=== PATIENT | female | born 1950 | race Hispanic/Latino ===

== ENCOUNTER 2017-04-29 20:58 | Emergency (ER) | payer MEDICAID ==
[2017-04-29] MEDS ORDERED: ACETAMINOPHEN-CODEINE 300/30MG TAB ONE (21:34)
== END 2017-04-29 23:02 | disposition home or self-care (01) ==
LOC: EDH 20:58
DX: S83.8X1A Sprain of other specified parts of right knee, initial encounter (principal); E11.9 Type 2 diabetes mellitus without complications; E78.5 Hyperlipidemia, unspecified; I10 Essential (primary) hypertension; M19.90 Unspecified osteoarthritis, unspecified site; J45.909 Unspecified asthma, uncomplicated; Z98.890 Other specified postprocedural states; X58.XXXA Exposure to other specified factors, initial encounter; Y93.89 Activity, other specified; Y92.098 Other place in other non-institutional residence as the place of occurrence of the external cause; Y99.8 Other external cause status
CPT/HCPCS: 73562

== ENCOUNTER 2018-10-17 22:58 | Emergency (ER) | payer MEDICARE ==
[2018-10-17 23:59] LABS: BASOPHILS % (AUTO) 0.4 % (0.0-5.0); EOSINOPHILS % (AUTO) 1.3 % (0.0-8.0); HEMATOCRIT 35.6 % (36-48); LYMPHOCYTES % (AUTO) 18.9 % (21.0-51.0); MEAN CORPUSCULAR HGB CONC 33.3 g/dL (32.0-36.0); MEAN CORPUSCULAR VOLUME 87.1 fL (79-99); MONOCYTES % (AUTO) 7.2 % (3.0-13.0); NEUTROPHILS % (AUTO) 72.2 % (40.0-77.0); NUCLEATED RED BLOOD CELLS 0.1 % (0.0-0.19); PLATELET COUNT (AUTO) 200 K/uL (130-400); RED BLOOD CELL COUNT(AUTO) 4.09 MIL/uL (4.00-5.50); RED CELL DISTRIBUTION WIDTH 12.8 % (11.0-15.5)
[2018-10-18 00:06] LABS: CARBON DIOXIDE 30 mmol/L (21-32); CHLORIDE 101 mmol/L (101-111); CREATININE 0.8 mg/dL (0.5-1.5); GLOMERULAR FILTR. RATE CALC 77 mL/min (>60); GLUCOSE,RANDOM 175 mg/dL (70-105); SODIUM SERUM 138 mmol/L (136-145); UREA NITROGEN, BLOOD 18 mg/dL (7-18)
[2018-10-18 00:10] LABS: INR 0.99 (0.85-1.15); PARTIAL THROMBOPLASTIN TIME 26.2 SEC (26.3-35.5); PROTHROMBIN TIME 10.4 SEC (9.6-11.6)
[2018-10-18 00:19] LABS: ALANINE AMINOTRANSFERASE 19 U/L (12-78); ALBUMIN 3.9 g/dL (3.5-5.0); ASPARTATE AMINOTRANSFERASE 23 U/L (10-37); BILIRUBIN,TOTAL 0.2 mg/dL (0.2-1.0); CREATINE KINASE, TOTAL 85 U/L (21-232); MYOGLOBIN 38 ng/mL (10-92); TOTAL PROTEIN, SERUM 8.1 g/dL (6.0-8.3); TROPONIN I < 0.04 ng/mL (0.00-0.06)
[2018-10-18] MEDS ORDERED: SODIUM CHLORIDE 0.9% 1000ML 1,000 ML IV ONE (00:33)
[2018-10-18] MEDS ORDERED: KETOROLAC TROMETHAMINE 30MG/ML ONE (00:33)
[2018-10-18] MEDS ORDERED: HYDROCODONE/ACETAMINOPHEN 5/325 MG TAB ONE (00:33)
[2018-10-18 01:56] LABS: APPEARANCE,URINE Clear (CLEAR); BILIRUBIN,URINE Negative (NEGATIVE); COLOR,URINE Yellow (YELLOW); GLUCOSE, URINE (UA) Negative (NEGATIVE); KETONES,URINE Negative (NEGATIVE); LEUKOCYTE ESTERASE ,URINE Moderate (NEGATIVE); NITRATE,URINE Negative (NEGATIVE); OCCULT BLOOD,URINE Negative (NEGATIVE); PROTEIN,URINE Negative (NEGATIVE); UROBILINOGEN,URINE 0.2 mg/dL (0.2-1.0)
[2018-10-18 02:23] LABS: BACTERIA,URINE None Seen /HPF (None Seen); MUCUS,URINE Rare LPF (None Seen); RBC,URINE None Seen /HPF (0-1); SQUAMOUS EPITHELIAL CELL,UR Rare /HPF (0-2)
== END 2018-10-18 02:37 | disposition home or self-care (01) ==
LOC: EDH 22:58
DX: S93.402A Sprain of unspecified ligament of left ankle, initial encounter (principal); S40.012A Contusion of left shoulder, initial encounter; S80.02XA Contusion of left knee, initial encounter; S90.32XA Contusion of left foot, initial encounter; I25.10 Atherosclerotic heart disease of native coronary artery without angina pectoris; E11.9 Type 2 diabetes mellitus without complications; E78.5 Hyperlipidemia, unspecified; I10 Essential (primary) hypertension; J45.909 Unspecified asthma, uncomplicated; M19.90 Unspecified osteoarthritis, unspecified site; Z98.890 Other specified postprocedural states; Z90.49 Acquired absence of other specified parts of digestive tract; W18.39XA Other fall on same level, initial encounter; Y93.89 Activity, other specified; Y92.89 Other specified places as the place of occurrence of the external cause; Y99.8 Other external cause status
CPT/HCPCS: 36415; 71045; 73030; 73562; 73600; 73630; 80053; 81001; 82550; 83605; 83874; 84484; 85025; 85610; 85730; 87040 ×2; 87077; 87088; 87186; 93005; 96374; 99285; J1885; J7030

== ENCOUNTER → 2021-04-07 | Outpatient (CLI) | payer MEDICARE | END | disposition home or self-care (01) | LOC: SHCH 13:05 | PROVIDERS: ATTEND Internal Medicine Cardiovascular Disease | DX: I08.1 Rheumatic disorders of both mitral and tricuspid valves (principal); E78.5 Hyperlipidemia, unspecified; E11.9 Type 2 diabetes mellitus without complications; R55 Syncope and collapse | CPT/HCPCS: 93306 ==

== ENCOUNTER 2021-08-04 22:40 | Emergency (ER) | payer OTHER, MEDICARE ==
[~2021-08-04] VITALS: Ht 144.8 cm; Wt 70.3 kg
[2021-08-04 23:34] LABS: BASOPHILS % (AUTO) 0.3 % (0.0-5.0); EOSINOPHILS % (AUTO) 1.4 % (0.0-8.0); HEMATOCRIT 37.5 % (36-48); LYMPHOCYTES % (AUTO) 8.9 % (21.0-51.0); MEAN CORPUSCULAR HEMOGLOBIN 28.6 pg (27.0-33.0); MEAN CORPUSCULAR HGB CONC 31.2 g/dL (32.0-36.0); MEAN CORPUSCULAR VOLUME 91.7 fL (79-99); MONOCYTES % (AUTO) 4.6 % (3.0-13.0); NEUTROPHILS % (AUTO) 84.3 % (40.0-77.0); PLATELET COUNT (AUTO) 266 K/uL (130-400); RED BLOOD CELL COUNT(AUTO) 4.09 MIL/uL (4.00-5.50); RED CELL DISTRIBUTION WIDTH 13.2 % (11.0-15.5); WHITE BLOOD COUNT (AUTO) 13.5 K/uL (4.8-10.8)
[2021-08-04 23:45] LABS: APPEARANCE,URINE Clear (CLEAR); BILIRUBIN,URINE Negative (NEGATIVE); COLOR,URINE Yellow (YELLOW); GLUCOSE, URINE (UA) Negative (NEGATIVE); KETONES,URINE Negative (NEGATIVE); LEUKOCYTE ESTERASE ,URINE Trace (NEGATIVE); NITRATE,URINE Negative (NEGATIVE); OCCULT BLOOD,URINE Small (NEGATIVE); PROTEIN,URINE Negative (NEGATIVE); UROBILINOGEN,URINE 0.2 mg/dL (0.2-1.0)
[2021-08-04 23:58] LABS: BACTERIA,URINE None Seen /HPF (None Seen); MUCUS,URINE Rare LPF (None Seen); RBC,URINE 0-1 /HPF (0-1); SQUAMOUS EPITHELIAL CELL,UR Rare /HPF (0-2); WBC,URINE None Seen /HPF (0-1)
[2021-08-05 00:08] LABS: CREATININE 0.7 mg/dL (0.5-1.5); POTASSIUM 3.9 mmol/L (3.5-5.1)
[2021-08-05 00:13] LABS: ALBUMIN 3.7 g/dL (3.5-5.0); BILIRUBIN,TOTAL 0.3 mg/dL (0.2-1.0); TOTAL PROTEIN, SERUM 7.8 g/dL (6.0-8.3)
[2021-08-05] MEDS ORDERED: IOHEXOL 350 MG/ML 100ML INFUS..BTL IV ONE (00:54)
[2021-08-05] MEDS ORDERED: LORAZEPAM 2 MG/ML 1 ML VIAL IVP ONE (01:30)
[2021-08-05] MEDS ORDERED: KETOROLAC 15MG/ML VIAL (15MG/ML) IV ONE (01:30)
[2021-08-05] MEDS ORDERED: ACET-66 PO (03:44)
[2021-08-05 03:46] VITALS: BP 137/81
== END 2021-08-05 03:49 | disposition home or self-care (01) ==
LOC: EDH 22:40
DX: K43.9 Ventral hernia without obstruction or gangrene (principal); E11.9 Type 2 diabetes mellitus without complications; E78.00 Pure hypercholesterolemia, unspecified; I10 Essential (primary) hypertension; I48.91 Unspecified atrial fibrillation; M19.90 Unspecified osteoarthritis, unspecified site; Z79.1 Long term (current) use of non-steroidal anti-inflammatories (NSAID); Z90.49 Acquired absence of other specified parts of digestive tract; Z95.1 Presence of aortocoronary bypass graft
CPT/HCPCS: 74177; 36415; 80053; 81001; 83690; 84484; 85025; 93005; 96374; 96375; 99285; J1885; J2060; Q9967

== ENCOUNTER 2022-10-27 15:58 | Emergency (ER) | payer OTHER, MEDICARE ==
[~2022-10-27] VITALS: Ht 147.3 cm; Wt 74.8 kg
[~2022-10-27 15:58] MED LIST: ACET-66 PO
[2022-10-27] MEDS ORDERED: ACETAMINOPHEN 325 MG TAB PO ONE (17:30)
[2022-10-27 17:50] LABS: BASOPHILS # (AUTO) 0.05 K/uL (0.00-0.20); BASOPHILS % (AUTO) 0.5 % (0.0-5.0); EOSINOPHILS # (AUTO) 0.14 K/uL (0.00-0.70); EOSINOPHILS % (AUTO) 1.4 % (0.0-8.0); HEMATOCRIT 32.5 % (36-48); IMMATURE GRANULOCYTE ABSOLUTE 0.11 K/uL (0-1); LYMPHOCYTES # (AUTO) 1.4 K/uL (1.0-4.8); LYMPHOCYTES % (AUTO) 13.6 % (21.0-51.0); MEAN CORPUSCULAR HEMOGLOBIN 28.7 pg (27.0-33.0); MEAN CORPUSCULAR HGB CONC 31.1 g/dL (32.0-36.0); MEAN CORPUSCULAR VOLUME 92.3 fL (79-99); MONOCYTES # (AUTO) 0.5 K/uL (0.1-1.0); MONOCYTES % (AUTO) 5.2 % (3.0-13.0); NEUTROPHILS % (AUTO) 78.2 % (40.0-77.0); PLATELET COUNT (AUTO) 247 K/uL (130-400); RED BLOOD CELL COUNT(AUTO) 3.52 MIL/uL (4.00-5.50); RED CELL DISTRIBUTION WIDTH 15.2 % (11.0-15.5); WHITE BLOOD COUNT (AUTO) 10.2 K/uL (4.8-10.8)
[2022-10-27 17:58] LABS: POTASSIUM 4.2 mmol/L (3.5-5.1)
[2022-10-27 18:03] LABS: ALBUMIN 3.7 g/dL (3.5-5.0); BILIRUBIN,TOTAL 0.3 mg/dL (0.2-1.0); TOTAL PROTEIN, SERUM 8.1 g/dL (6.0-8.3)
[2022-10-27] MEDS ORDERED: PROPOFOL 10 MG/ML 20ML VIAL IV ONE (18:30)
[2022-10-27] MEDS ORDERED: PROPOFOL 10 MG/ML 20ML VIAL IV SCH (19:00)
[2022-10-27] MEDS ORDERED: LACTATED RINGERS 1000ML 1,000 ML IV ONE (19:00)
[2022-10-27] MEDS ORDERED: IOHEXOL 350 MG/ML 100ML INFUS..BTL IV ONE (19:26)
[2022-10-27] MEDS ORDERED: IBUP-2076 PO (20:38)
[2022-10-27] MEDS ORDERED: AZIT250T9 PO (20:38)
[2022-10-27] MEDS ORDERED: CEFTRIAXONE 1G VIAL ONE (20:39)
[2022-10-27] MEDS ORDERED: CEFTRIAXONE 1G VIAL IVPB ONE (21:00)
[2022-10-27 21:07] LABS: APPEARANCE,URINE CLEAR (CLEAR); BILIRUBIN,URINE NEGATIVE (NEGATIVE); COLOR,URINE COLORLESS (YELLOW); GLUCOSE, URINE (UA) NEGATIVE (NEGATIVE); KETONES,URINE NEGATIVE (NEGATIVE); LEUKOCYTE ESTERASE ,URINE NEGATIVE Leu/uL (NEGATIVE); NITRATE,URINE NEGATIVE (NEGATIVE); OCCULT BLOOD,URINE NEGATIVE (NEGATIVE); PROTEIN,URINE NEGATIVE (NEGATIVE); UROBILINOGEN,URINE 0.2 mg/dL (0.2-1.0)
[2022-10-27 21:14] LABS: ADD UA MICROSCOPIC YES
[2022-10-27 21:25] VITALS: BP 147/71; PULSE 71; RESP 16; O2SAT 97
== END 2022-10-27 21:28 | disposition home or self-care (01) ==
LOC: EDH 15:58
DX: S43.004A Unspecified dislocation of right shoulder joint, initial encounter (principal); J18.1 Lobar pneumonia, unspecified organism; D64.9 Anemia, unspecified; I10 Essential (primary) hypertension; E11.9 Type 2 diabetes mellitus without complications; E78.00 Pure hypercholesterolemia, unspecified; I48.91 Unspecified atrial fibrillation; M19.90 Unspecified osteoarthritis, unspecified site; Z90.49 Acquired absence of other specified parts of digestive tract; Z98.890 Other specified postprocedural states
CPT/HCPCS: 99285; 23650; 96374; 71270; 71045; 96361; 96375; 84484; 80053; 85025; 81001; 36415; 73030 ×2; 93005; J7120; J0696; J2704; Q9967; J3490

== ENCOUNTER 2023-05-26 07:53 | Emergency (ER) | payer OTHER, MEDICARE ==
[~2023-05-26] VITALS: Ht 154.9 cm; Wt 72.6 kg
[~2023-05-26 07:53] MED LIST changes: +AZIT250T9 PO; +IBUP-2076 PO
[2023-05-26 08:31] LABS: RAPID GROUP A STREP negative (NEGATIVE)
[2023-05-26 08:33] LABS: SARS-CoV-2, RNA, NAAT NEGATIVE SARS CoV-2 (NEGATIVE)
[2023-05-26 09:17] LABS: INFLUENZA TYPE A Negative For Type A (NEGATIVE); INFLUENZA TYPE B Negative For Type B (NEGATIVE)
[2023-05-26] MEDS: GUAIFENESIN 600 MG TABLET.ER PO ONE (09:43)
[2023-05-26] MEDS: 0.9%NACL 1000ML 1,000 ML IV ONE (09:44)
[2023-05-26] MEDS: CEFTRIAXONE 2GM VIAL IVPB ONE (09:44)
[2023-05-26] MEDS: INSULIN HUMULIN R 100 UNIT/ML 3ML SQ ONE (09:59)
[2023-05-26 10:05] VITALS: PULSE 73; RESP 18
[2023-05-26] MEDS: ALBUTEROL 0.083% 2.5 MG/3 ML INH IH ONE (10:05)
[2023-05-26] MEDS ORDERED: AUD IH (12:00)
[2023-05-26] MEDS ORDERED: BENZ-39 PO (12:00)
[2023-05-26] MEDS ORDERED: AZIT250T9 PO (12:00)
[2023-05-26 12:23] VITALS: BP 131/70; PULSE 86; RESP 28; O2SAT 95
[2023-05-26] MEDS ORDERED: AZITHROMYCIN 250 MG TABLET PO ONE (12:30)
== END 2023-05-26 12:22 | disposition home or self-care (01) ==
LOC: EDH 07:53
DX: J40 Bronchitis, not specified as acute or chronic (principal); I10 Essential (primary) hypertension; E11.9 Type 2 diabetes mellitus without complications; E78.00 Pure hypercholesterolemia, unspecified; I48.91 Unspecified atrial fibrillation; M19.90 Unspecified osteoarthritis, unspecified site; Z20.822 Contact with and (suspected) exposure to COVID-19; Z79.899 Other long term (current) drug therapy; Z90.49 Acquired absence of other specified parts of digestive tract; Z98.890 Other specified postprocedural states; Z88.8 Allergy status to other drugs, medicaments and biological substances
CPT/HCPCS: 99284; 96365; 96361; 71045; 87635; 87880; 87420; 87804 ×2; 82948 ×2; 94640; 96372; J1815; J7030; J0696

== ENCOUNTER → 2023-09-28 | Outpatient (CLI) | payer OTHER, MEDICARE ==
[~2023-09-28] MED LIST changes: +AUD IH; +BENZ-39 PO
== END | disposition home or self-care (01) ==
LOC: SHCH 15:52
PROVIDERS: ATTEND Internal Medicine Cardiovascular Disease
DX: I08.3 Combined rheumatic disorders of mitral, aortic and tricuspid valves (principal); Q21.0 Ventricular septal defect
CPT/HCPCS: 93306

== ENCOUNTER → 2024-02-11 | Outpatient (CLI) | payer OTHER, MEDICARE ==
[~2024-02-11] MED LIST changes: +IOHEXOL-350 75 ML VIAL IV ONE
--- NOTE | 2024-02-11 10:18 | HMCIMG ---
CT ABDOMEN/PELVIS W/WO CONTRAS HISTORY: Open wound of abdominal wall COMPARISON: 08/05/2021 TECHNIQUE: Multiple sequential axial images of the abdomen and pelvis were obtained from the dome of the diaphragm through symphysis pubis. Patient was given 75 cc of Omnipaque through intravenous route. Oral contrast was given. FINDINGS: No pleural effusion is seen bilaterally. Minimal left lingular and right middle lobe reticular nodular infiltrates are seen. Degenerative changes of the thoracolumbar spine are present. The heart is not enlarged. Coronary arterial calcifications are seen. Liver measures 14 cm. Post cholecystectomy changes are seen. There is complex fluid containing structure in the left periumbilical region measuring 3.6 x 2 cm may be related to seroma versus abscess. Adjacent subcutaneous fat stranding is seen. There may also be superimposed small periumbilical hernia with fat and fluid content with inflammatory changes. The liver, spleen, adrenal glands and pancreas are unremarkable. There is no evidence of hydronephrosis bilaterally. No evidence of renal stone is seen. Fecal material is seen in the colon. There are normal size retroperitoneal and mesenteric lymph nodes. No ascites is seen. Atherosclerotic changes are present. There appears to be fibroids in the uterus measuring 3.6 cm. Pelvic sidewalls are symmetric bilaterally. Bladder is poorly distended with apparent wall thickening. IMPRESSION: 1. There is complex fluid containing structure in the left periumbilical region measuring 3.6 x 2 cm may be related to seroma versus abscess. Adjacent subcutaneous fat stranding is seen. There may also be superimposed small periumbilical hernia with fat and fluid content with inflammatory changes. CT was performed with one or more following dose reduction techniques: automated exposure control, adjustment of the mA and kv according to patient's size, or use of a iterative reconstruction technique.
== END | disposition home or self-care (01) ==
LOC: RAH 08:49
PROVIDERS: ATTEND Family Medicine
DX: S31.105A Unspecified open wound of abdominal wall, periumbilic region without penetration into peritoneal cavity, initial encounter (principal); N32.89 Other specified disorders of bladder; I25.10 Atherosclerotic heart disease of native coronary artery without angina pectoris; M47.815 Spondylosis without myelopathy or radiculopathy, thoracolumbar region; I70.90 Unspecified atherosclerosis; Z90.49 Acquired absence of other specified parts of digestive tract; X58.XXXA Exposure to other specified factors, initial encounter; Y93.89 Activity, other specified; Y92.89 Other specified places as the place of occurrence of the external cause; Y99.8 Other external cause status
CPT/HCPCS: 74178; Q9967